=== PATIENT | female | born 1960 | race Caucasian/White ===

== ENCOUNTER 2020-06-04 18:23 | Emergency (ER) | payer BC ==
[2020-06-04] MEDS ORDERED: ACETAMINOPHEN 325 MG TABLET PO STA (18:50)
--- NOTE | 2020-06-04 18:50 | ED Physician Documentation ---
PD HPI UPPER EXT INJURY - Stated complaint Stated Complaint: FALL, LEFT WRIST PAIN - Chief complaint Chief Complaint: Ext Problem - History obtained from History obtained from: Patient, Family - History of Present Illness Location: Left Type of injury: Fall Timing - onset: Today - Additonal information Additional information: Otherwise healthy 60-year-old woman [place] and fell on outstretched, nondominant left hand with a left wrist injury. No other injuries. Review of Systems Constitutional: reports: Reviewed and negative Nose: reports: Reviewed and negative Throat: reports: Reviewed and negative Cardiac: reports: Reviewed and negative PD PAST MEDICAL HISTORY - Present Medications Home Medications: Ambulatory Orders Medication Instructions Recorded Confirmed Hydrocodone/Acetaminophen 1 - 2 tab PO Q6H PRN #15 tablet 06/04/20 [Hydrocodone-Acetamin 5-325 mg] - Allergies Allergies/Adverse Reactions: Allergies Allergy/AdvReac Type Severity Reaction Status Date / Time No Known Drug Allergies Allergy Verified 06/04/20 18:46 PD ED PE NORMAL - Vitals Vital signs reviewed: Yes - General General: Alert and oriented X 3, No acute distress - Extremities Extremities: Other (There is a subtle deformity of the left wrist, no snuffbox tenderness. Very limited range of motion. No distal neurovascular compromise.) - Neuro Neuro: Alert and oriented X 3, Normal speech Results - Vitals Vitals: Vital Signs - 24 hr 06/04/20 06/04/20 18:43 19:36 Temperature 37.0 C 37.0 C Heart Rate 79 74 Respiratory 15 16 Rate Blood Pressure 147/92 H 137/76 H O2 Saturation 98 96 Oxygen O2 Source Room air - Rads (name of study) L wrist XR Radiology: EMP read contemporaneously (Distal radius fracture with mild dorsal angulation) Procedures - Splint (location) LUE Splint applied by: Tech Type of splint: Fiberglass, Short arm, Volar cock up Other: Patient tolerated well, No complications, Neurovascular intact - Reduction Body part reduced: Left, Wrist Fracture or dislocation: Fracture Anesthesia: Hematoma block (6ml 1%lidocaine) Reduction aftercare: Alignment improved, Splint applied PD MEDICAL DECISION MAKING - ED course ED course: Presents with an isolated nondominant left wrist injury after a fall on the beach. We did a hematoma block after ChloraPrep and reduction was made with visual improvement and she felt that it helps to. She was placed in a fiberglass splint. She lives in [place] and will seek orthopedic consultation during the workweek after return home. Departure - Departure Disposition: 01 Home, Self Care Clinical Impression: Distal radius fracture, left Qualifiers: Encounter type: initial encounter Fracture type: closed Fracture morphology: other intra-articular Qualified Code(s): S52.572A - Other intraarticular fracture of lower end of left radius, initial encounter for closed fracture Condition: Good Record reviewed to determine appropriate education?: Yes Instructions: ED Fx Forearm Radius Ulna No Redu Requ Prescriptions: Hydrocodone/Acetaminophen [Hydrocodone-Acetamin 5-325 mg] 1 - 2 tab PO Q6H PRN #15 tablet PRN Reason: Pain Comments: You were seen today for a wrist injury, you have a fracture of the distal radius. You should follow-up with an orthopedic surgeon near her home within the week. Keep the splint on and dry until then. Return as needed for new or worsening symptoms. Discharge Date/Time: 06/04/20 19:49
[2020-06-04] MEDS ORDERED: HYDROcod/ACET 5/325 Prepack 4 PO STA (19:27)
[2020-06-04 19:37] VITALS: BP 137/76
--- NOTE | 2020-06-04 19:45 | XRAY Report ---
PROCEDURE: Wrist 3 View LT INDICATIONS: wrist inj TECHNIQUE: 3 views of the wrist were acquired. COMPARISON: None FINDINGS: Bones: Distal radius fracture with mild dorsal angulation. No suspicious bony lesions. Soft tissues: No suspicious soft tissue calcifications. IMPRESSION: Distal radius fracture with mild dorsal angulation. Reviewed by: Rick Jones MD on 06/04/2020 7:43 PM PDT Approved by: Rick Jones MD on 06/04/2020 7:43 PM PDT Station ID: [id number]
== END 2020-06-04 19:49 | disposition home or self-care (01) ==
LOC: ED 18:23
DX: S52.572A Other intraarticular fracture of lower end of left radius, initial encounter for closed fracture (principal); W01.0XXA Fall on same level from slipping, tripping and stumbling without subsequent striking against object, initial encounter; Y93.01 Activity, walking, marching and hiking; Y92.832 Beach as the place of occurrence of the external cause
CPT/HCPCS: 25605; 73110; 99283; A9270